=== PATIENT | male | born 1980 | race Caucasian/White ===

== ENCOUNTER 2023-12-02 13:57 | Outpatient (CLI) | payer BC ==
[2023-12-02 15:32] LABS: Hematocrit 44.6 % (38.8-50.0); Hemoglobin 16.6 g/dL (13.5-17.5); Mean Corpuscular HGB CONC 37.2 g/dL (32.0-36.0); Mean Corpuscular Hemoglobin 31.9 pg (27.0-33.0); Mean Corpuscular Volume 85.8 fl (81.2-95.1); Mean Platelet Volume 9.9 fl (7.4-10.4); Platelet Count 266 10x3/uL (150-450); RBC Distribution Width 12.7 % (11.5-14.5); White Blood Cell (WBC) Count 9.1 10x3/uL (3.5-10.5)
[2023-12-02 15:52] LABS: Anion Gap 18 mmol/L (10-20); BUN (Urea Nitrogen) 10 mg/dL (8.9-20.6); Calc. Creatinine Clearance 0 mL/min (70-130); Calcium 9.9 mg/dL (7.8-10.44); Carbon Dioxide 25 mmol/L (22-29); Chloride 97 mmol/L (98-107); Estimated GFR 108; Glucose 268 mg/dL (70-105); Potassium 3.7 mmol/L (3.5-5.1); Sodium 136 mmol/L (136-145)
[2023-12-02 15:54] LABS: INR-International Normal Ratio 0.9; PTT 29.4 sec (22.0-33.0); Prothrombin Time 9.9 sec (9.5-12.1)
== END 2023-12-02 13:58 | disposition home or self-care (01) ==
LOC: LABBT 13:57
PROVIDERS: ATTEND Surgery
DX: Z01.818 Encounter for other preprocedural examination (principal); M48.02 Spinal stenosis, cervical region; M54.12 Radiculopathy, cervical region
CPT/HCPCS: 80048; 85027; 85610; 85730; 93005; 93010

== ENCOUNTER 2023-12-02 14:00 | Inpatient (IN) | payer BC ==
[2023-12-02 14:14] VITALS: BMI 29.0
[2023-12-04] MEDS ORDERED: Thrombin 5000 UNITS/5 ML VIAL ONE (06:25)
[2023-12-04] MEDS ORDERED: CEFAZOLIN 2 GM VIAL ONE (07:12)
[2023-12-04] MEDS ORDERED: Sodium Chloride 0.9% 100 ML ONE (07:12)
[2023-12-04] MEDS ORDERED: Midazolam HCl 2 mg/2 ml Vial ONE ×2 (07:24→07:31)
[2023-12-04] MEDS ORDERED: PROPOFOL 20 ML ONE (07:30)
[2023-12-04] MEDS ORDERED: Rocuronium Bromide 10 MG/ML (10ML VIAL) ONE ×2 (07:30)
[2023-12-04] MEDS ORDERED: Fentanyl 250 MCG/5 ML VIAL ONE (07:31)
[2023-12-04] MEDS ORDERED: MINERAL OIL/WHITE PETROLATUM 3.5 GM TUBE ONE (07:35)
[2023-12-04] MEDS ORDERED: Lidocaine 2% 6 ML (Jelly) SYR ONE (07:37)
[2023-12-04] MEDS ORDERED: Dexamethasone 20 MG/5 ML VIAL ONE (08:01)
[2023-12-04] MEDS ORDERED: Ondansetron PF 4 MG/2 ML Vial ONE (08:01)
[2023-12-04] MEDS ORDERED: Ketorolac Tromethamine 30 MG (1 mL) VIAL ONE (08:01)
[2023-12-04] MEDS ORDERED: Acetaminophen/Codeine 30-300mg Tablet PO PRN (09:11)
[2023-12-04] MEDS ORDERED: diphenhydrAMINE 25 MG CAP PO PRN (09:11)
[2023-12-04] MEDS ORDERED: Acetaminophen 325 MG TAB PO PRN (09:11)
[2023-12-04] MEDS ORDERED: Milk Of Magnesia 30 ML UDCUP PO PRN (09:11)
[2023-12-04] MEDS ORDERED: Ondansetron PF 4 MG/2 ML Vial IVP PRN (09:11)
[2023-12-04] MEDS ORDERED: Phenol 177 ML BOT PO PRN (09:12)
[2023-12-04] MEDS ORDERED: Benzocaine/Menthol 1 LOZ LOZ PO PRN (09:12)
[2023-12-04] MEDS ORDERED: hydrALAZINE 20 MG/ML VIAL SLOW IVP PRN (09:12)
[2023-12-04] MEDS ORDERED: Diazepam 5 MG TAB PO PRN (09:13)
[2023-12-04] MEDS ORDERED: Dextroamphetamine/Amphetamine [Adderall Xr 30 Mg Capsule] PO PRN (09:21)
[2023-12-04] MEDS ORDERED: Albuterol 1.25 MG (3 mL) NEB NEB PRN (09:22)
[2023-12-04] MEDS ORDERED: SUGAMMADEX SODIUM 200 MG/2 ML VIAL ONE (09:49)
[2023-12-04] MEDS ORDERED: Promethazine HCl 25 MG/ML VIAL IM PRN (09:58)
[2023-12-04] MEDS ORDERED: Ondansetron HCl/PF 4 MG/2 ML Vial IVP PRN (09:58)
[2023-12-04] MEDS ORDERED: HYDROmorphone 2 MG/ML VIAL SLOW IVP PRN (09:58)
[2023-12-04] MEDS ORDERED: HYDROmorphone 2 MG/ML VIAL ONE (10:45)
[2023-12-04] MEDS ORDERED: HYDROmorphone 0.5 MG/0.5 ML SYRINGE ONE (11:39)
[2023-12-04] MEDS ORDERED: fentaNYL 50 mcg/mL 1 mL Vial ONE ×2 (11:51→12:05)
[2023-12-04] MEDS: tiZANidine HCl 4 MG TAB PO PRN ×2 (13:05→21:31)
[2023-12-04] MEDS: HYDROcodone/Acetaminophen 10/325 mg Tablet PO PRN ×3 (13:05→21:30)
[2023-12-04] MEDS: Sodium Chloride 0.9% 1,000 ML IV SCH ×2 (13:37→23:25)
[2023-12-04] MEDS: CEFAZOLIN 2 GM in Sodium Chloride 0.9% 100 ML IVPB SCH ×2 (14:16→23:26)
[2023-12-04] MEDS: Morphine 2 MG/ML VIAL SLOW IVP PRN (14:16)
[2023-12-05] MEDS: HYDROcodone/Acetaminophen 10/325 mg Tablet PO PRN ×2 (04:28→10:20)
[2023-12-05] MEDS: CEFAZOLIN 2 GM in Sodium Chloride 0.9% 100 ML IVPB SCH (06:25)
[2023-12-05] MEDS: Morphine 2 MG/ML VIAL SLOW IVP PRN (08:42)
[2023-12-05] MEDS ORDERED: Fenofibrate Nanocrystallized 145 MG TAB PO SCH (09:00)
[2023-12-05] MEDS ORDERED: Hydrochlorothiazide 25 MG TAB PO SCH (09:00)
[2023-12-05 11:48] VITALS: BP 131/80; TEMP 98.5
[2023-12-05] MEDS ORDERED: Diazepam 5 MG TAB PO SCH (12:30)
[2023-12-05] MEDS: Sodium Chloride 0.9% 1,000 ML IV SCH (12:54)
== END 2023-12-05 13:24 | disposition home or self-care (01) | DRG 473 ==
LOC: SURG A 12-04 05:40 → T4-A 12-04 12:52
PROVIDERS: ADMIT Surgery; ATTEND Surgery
PROC: 01N10ZZ Release Cervical Nerve, Open Approach (ICD-10-PCS; principal; 2023-12-04)
PROC: 0RG2070 Fusion of 2 or more Cervical Vertebral Joints with Autologous Tissue Substitute, Anterior Approach, Anterior Column, Open Approach (ICD-10-PCS; 2023-12-04)
PROC: 00NW0ZZ Release Cervical Spinal Cord, Open Approach (ICD-10-PCS; 2023-12-04)
PROC: 0RB30ZZ Excision of Cervical Vertebral Disc, Open Approach (ICD-10-PCS; 2023-12-04)
DX: M48.02 Spinal stenosis, cervical region (principal); M54.12 Radiculopathy, cervical region; F17.200 Nicotine dependence, unspecified, uncomplicated
CPT/HCPCS: C1713; J1100; J1170; J1885; J2250; J2272; J2405; J2704; J3010; J3490